=== PATIENT | male | born 1980 | race African-American/Black ===

== ENCOUNTER 2017-12-01 09:40 | Outpatient (CLI) | payer OTHER | END 2017-12-01 09:41 | disposition home or self-care (01) | LOC: SC 09:40 | PROVIDERS: ATTEND Internal Medicine Pulmonary Disease | DX: G47.33 Obstructive sleep apnea (adult) (pediatric) (principal) | CPT/HCPCS: 99203; 99212 ==

== ENCOUNTER 2018-01-25 19:25 | Outpatient (CLI) | payer OTHER | END 2018-01-25 19:26 | disposition home or self-care (01) | LOC: SC 19:25 | PROVIDERS: ATTEND Internal Medicine Pulmonary Disease | DX: G47.33 Obstructive sleep apnea (adult) (pediatric) (principal); I10 Essential (primary) hypertension | CPT/HCPCS: 95810 ==

== ENCOUNTER 2018-02-22 11:17 | Outpatient (CLI) | payer OTHER | END 2018-02-22 11:18 | disposition home or self-care (01) | LOC: SC 11:17 | PROVIDERS: ATTEND Internal Medicine Pulmonary Disease | DX: G47.33 Obstructive sleep apnea (adult) (pediatric) (principal); I10 Essential (primary) hypertension | CPT/HCPCS: 99212; 99213 ==

== ENCOUNTER 2018-03-22 10:12 | Outpatient (CLI) | payer OTHER | END 2018-03-22 10:13 | disposition home or self-care (01) | LOC: SC 10:12 | PROVIDERS: ATTEND Internal Medicine Pulmonary Disease | DX: G47.33 Obstructive sleep apnea (adult) (pediatric) (principal) | CPT/HCPCS: 99212; 99213 ==